=== PATIENT | female | born 1940 | race Caucasian/White ===

== ENCOUNTER 2017-11-09 12:22 | Outpatient (CLI) | payer MEDICARE, BC ==
[2017-11-09] MEDS ORDERED: Sodium Chloride 0.9% 50 ML BAG ONE (12:40)
[2017-11-09] MEDS ORDERED: Lidocaine 1% PF 10 ML AMP ONE (12:40)
[2017-11-09] MEDS ORDERED: EPINEPHrine 1 MG/ML AMP ONE (12:40)
[2017-11-09] MEDS ORDERED: Iopamidol 300 61% 50 ML VIAL FS ONE (12:40)
--- NOTE | 2017-11-09 15:03 | RAD ---
RIGHT SHOULDER ARTHROGRAM: HISTORY: Right shoulder injury. FINDINGS: After explaining the procedure and answering all questions, the anterior aspect of the right shoulder was prepped and draped in the usual sterile fashion. Sterile technique, buffered local anesthesia, fluorosocpic guidance, and an anterior approach were used to carefully advance the tip of a 22 gauge spinal needle so the joint capsule at the level of the humeral head. Total volume of 10 cc of a liqu id mixture containing normal saline, 1% Lidocaine, iodinated contrast, and a small amount of Gadolini um and epinephrine were then instilled into the joint capsule under fluoroscopic control. The needle was removed and spot images obtained. The patient tolerated the procedure well and was transferred to CT in good condition for further imaging. Images show contrast throughout the joint capsule. There is contrast immediately inferior to the acr omion, favored to extend through a defect in the rotator cuff. IMPRESSION: Technically successful right shoulder arthrogram. Probable full-thickness rotator cuff tear. CT is pending. POS: MARQUITA
--- NOTE | 2017-11-09 15:09 | CT ---
RIGHT SHOULDER CT SCAN POST ARTHROGRAM: HISTORY: A 77-year-old female with right shoulder pain, tear of right rotator cuff, unspecified tear extent. Scans of the right shoulder are performed following a right shoulder arthrogram. There is a large fu ll-thickness minimally retracted somewhat attenuating tear of the supraspinatus tendon approximating 1.9 cm in size transversely with retraction back to near the level of the humeral dome. There is flu id extension into the subacromial and subdeltoid bursa. There is at least moderate muscle volume los s of the supraspinatus muscle. There is a small undersurface and delaminating tear of the subscapula ris tendon. The biceps appears intact. The infraspinatus tendon appears intact. IMPRESSION: Large full-thickness minimally retracted somewhat attenuating tear of the supraspinatus tendon with a t least moderate muscle volume loss of the supraspinatus muscle. Small undersurface and delaminating subscapularis tendon tear. Slightly blunted posterior labrum but without evidence for definitive ac damaris labral tear. POS: C
== END 2017-11-09 12:23 | disposition home or self-care (01) ==
LOC: RAD 12:22
PROVIDERS: ATTEND Orthopaedic Surgery
DX: M75.101 Unspecified rotator cuff tear or rupture of right shoulder, not specified as traumatic (principal)
CPT/HCPCS: 23350; J0171; J7050

== ENCOUNTER 2018-08-31 11:34 | Emergency (ER) | payer MEDICARE, BC ==
[2018-08-31 13:20] LABS: #Basophils 0.1 thou/uL (0.0-0.2); #Eosinphils 0.2 thou/uL (0.0-0.7); #Lymphocytes 1.3 thou/uL (1.20-3.40); #Monocytes 0.5 thou/uL (0.11-0.59); %Basophils 1.6 % (0.0-1.0); %Eosinophils 3.3 % (0.0-10.0); %Lymphocytes 26.2 % (21.0-51.0); %Monocytes 9.8 % (0.0-10.0); %Neutrophils 59.1 % (42.0-75.0); Hemoglobin 14.1 g/dL (12.0-16.0); Mean Corpuscular HGB CONC 34.1 g/dL (32.0-36.0); Mean Corpuscular Volume 96.9 fL (78.0-98.0); Mean Platelet Volume 8.2 fL (7.4-10.4); Platelet Count 235 thou/uL (130-400); RBC Distribution Width 11.3 % (11.5-14.5); Red Blood Cell (RBC) Count 4.29 mill/uL (4.20-5.40); White Blood Cell (WBC) Count 5.1 thou/uL (4.8-10.8)
[2018-08-31 13:47] LABS: ALT (SGPT) 40 U/L (8-55); AST (SGOT) 33 U/L (5-34); Albumin 4.5 g/dL (3.4-4.8); Alkaline Phosphatase 69 U/L (40-150); Anion Gap 12 mmol/L (10-20); BUN (Urea Nitrogen) 14 mg/dL (9.8-20.1); Bilirubin, Total 0.4 mg/dL (0.2-1.2); Calc. Creatinine Clearance 0 mL/min (70-130); Calcium 10.1 mg/dL (7.8-10.44); Carbon Dioxide 30 mmol/L (23-31); Chloride 99 mmol/L (98-107); Estimated GFR-MDRD 84; Globulin 3.2 g/dL (2.4-3.5); Glucose 83 mg/dL (83-110); Potassium 3.8 mmol/L (3.5-5.1); Protein, Total 7.7 g/dL (6.0-8.3); Sodium 137 mmol/L (136-145)
--- NOTE | 2018-08-31 14:35 | ULT ---
LEFT LOWER EXTREMITY VENOUS DUPLEX EXAM: Date: 08/31/18 HISTORY: Left leg pain and swelling. FINDINGS: Real-time color Doppler of the left lower extremity was performed from groin to calf. This includes e valuation of the common femoral, superficial and profunda femoral, saphenous, popliteal, and posterio r tibial veins. This shows a patent deep venous system with normal compressibility and augmentation. There is no evidence of deep venous thrombosis. IMPRESSION: No evidence of deep venous thrombosis of the left lower extremity. POS: TPC
== END 2018-08-31 13:58 | disposition home or self-care (01) ==
LOC: ERS 11:34
DX: M79.89 Other specified soft tissue disorders (principal); E78.5 Hyperlipidemia, unspecified; I10 Essential (primary) hypertension; Z79.899 Other long term (current) drug therapy
CPT/HCPCS: 80053; 85025; 85379

== ENCOUNTER 2019-01-31 08:16 | Outpatient (CLI) | payer MEDICARE, BC ==
--- NOTE | 2019-01-31 09:03 | MMO ---
Bilateral MAMMO Bilat Screen [facility]. CLINICAL HISTORY: Patient is 79 years old and is seen for screening. The patient has the following family history of breast cancer: sister. The patient has no personal history of cancer. The patient has a history of right Excisional Biopsy in June, - benign. VIEWS: The views performed were: bilateral craniocaudal with tomosynthesis and bilateral mediolateral oblique with tomosynthesis. FILMS COMPARED: The present examination has been compared to prior imaging studies performed at [facility] on 09/23/2009, 10/22/2010, 11/21/2011 and 11/01/2012. MAMMOGRAM FINDINGS: There are scattered fibroglandular densities. Increasing bilateral vascular calcifications. There are no suspicious masses, suspicious calcifications, or new areas of architectural distortion. IMPRESSION: THERE IS NO MAMMOGRAPHIC EVIDENCE OF MALIGNANCY. A ROUTINE FOLLOW-UP MAMMOGRAM IN 1 YEAR IS RECOMMENDED. THE RESULTS OF THIS EXAM WERE SENT TO THE PATIENT. ACR BI-RADS Category 2 - Benign finding MAMMOGRAPHY NOTE: 1. A negative mammogram report should not delay a biopsy if a dominant of clinically suspicious mass is present. 2. Approximately 10% to 15% of breast cancers are not detected by mammography. 3. Adenosis and dense breasts may obscure an underlying neoplasm. Reported by: Zurdo LEVY Electonically Signed: [id number]
== END 2019-01-31 08:17 | disposition home or self-care (01) ==
LOC: BICMAMMO 08:16
PROVIDERS: ATTEND Family Medicine
DX: Z12.31 Encounter for screening mammogram for malignant neoplasm of breast (principal); Z80.3 Family history of malignant neoplasm of breast
CPT/HCPCS: 77063; 77067

== ENCOUNTER 2020-03-12 20:31 | Inpatient (IN) | payer MEDICARE, OTHER ==
[2020-03-12 21:25] LABS: #Basophils 0.1 thou/uL (0.0-0.2); #Eosinphils 0.2 thou/uL (0.0-0.7); #Lymphocytes 1.5 thou/uL (1.20-3.40); #Monocytes 0.6 thou/uL (0.11-0.59); #Neutrophils 4.7 thou/uL (1.40-6.50); %Basophils 1.1 % (0.0-1.0); %Eosinophils 2.1 % (0.0-10.0); %Lymphocytes 21.1 % (21.0-51.0); %Monocytes 8.7 % (0.0-10.0); Hemoglobin 13.8 g/dL (12.0-16.0); Mean Corpuscular HGB CONC 33.9 g/dL (32.0-36.0); Mean Corpuscular Hemoglobin 33.1 pg (27.0-31.0); Mean Corpuscular Volume 97.8 fL (78.0-98.0); Mean Platelet Volume 8.6 fL (7.4-10.4); Platelet Count 220 thou/uL (130-400); Red Blood Cell (RBC) Count 4.16 mill/uL (4.20-5.40); White Blood Cell (WBC) Count 7.1 thou/uL (4.8-10.8)
[2020-03-12 21:41] LABS: ALT (SGPT) 28 U/L (8-55); AST (SGOT) 20 U/L (5-34); Albumin 4.1 g/dL (3.4-4.8); Alkaline Phosphatase 65 U/L (40-110); Anion Gap 13 mmol/L (10-20); BUN (Urea Nitrogen) 19 mg/dL (9.8-20.1); Bilirubin, Total 0.2 mg/dL (0.2-1.2); CK (CPK) 66 U/L (29-168); Calc. Creatinine Clearance 0 mL/min (70-130); Calcium 9.4 mg/dL (7.8-10.44); Carbon Dioxide 25 mmol/L (23-31); Chloride 102 mmol/L (98-107); Estimated GFR-MDRD 58; Globulin 2.7 g/dL (2.4-3.5); Glucose 130 mg/dL (83-110); Lipase 34 U/L (8-78); Potassium 3.6 mmol/L (3.5-5.1); Protein, Total 6.8 g/dL (6.0-8.3); Sodium 136 mmol/L (136-145)
[2020-03-12 22:02] LABS: Bacteria/HPF 1+ HPF (None Seen); Bilirubin Negative (Negative); Blood, Urine Negative (Negative); Clarity Clear (Clear); Glucose, Urine (Dipstick) Normal (Negative); Ketone, Urine Negative (Negative); Leukocyte 500 Leu/uL (Negative); Nitrite Negative (Negative); Protein, Urine (Dipstick) Negative (Neg-Trace); RBC/HPF 0-3 HPF (0-3); Specific Gravity, Urine 1.013 (1.002-1.036); Urobilinogen Normal mg/dL (Less than 2)
[2020-03-12] MEDS ORDERED: Clopidogrel Bisulfate 75 MG TAB ONE (23:25)
[2020-03-13] MEDS ORDERED: Sulfameth/Trimethoprim DS 800-160mg TAB ONE (00:45)
[2020-03-13 01:17] LABS: CKMB 2.5 ng/mL (0-6.6)
[2020-03-13 01:21] VITALS: BMI 31.7
--- NOTE | 2020-03-13 02:30 | PDOC.HHP ---
Hospitalist HPI - History of Present Illness HTN, presyncope History of Present Illness: Patient is a 80 yaer old female with PMH HTN, HLD, GERD who presents to ED after presyncopal episode today, patient reports she was getting up to go to restroom and she very nearly passed out, did not fully lose consciousness but frightened her, episode was short in duration, she denies chest pain/shortness of breath/palpitations/confusion at that time, she did check her BP afterwards and it was very high, 200s/100s, she took one of her PRN clonidines. She has been stable on benazepril for some time, but reports about 6 weeks ago, BP became more labile and will go high occasionally. She told her PCP and was referred to cardiology Dr Banks, she wore a holter monitor for a week and was told she only had a very minor findings (sound like PVC/PAC from description ). She had an echo a few days ago and does not know results. Here in ED, BP elevated, troponin elevated, patient given plavix due to history of nose bleeds on aspirin. Labs concerning for elevated troponin 0.132, UA suggestive of UTI, cultures drawn, patient given bactrim and admitted for further workup. Hospitalist ROS - Review of Systems Constitutional: reports: weakness, other (presyncope). denies: fever, chills, sweats, malaise Eyes: denies: pain, vision change, conjunctivae inflammation, eyelid inflammation, redness, other ENT: denies: ear pain, ear discharge, nose pain, nose discharge, nose congestion , mouth pain, mouth swelling, throat pain, throat swelling, other Respiratory: denies: cough, dry, shortness of breath, hemoptysis, SOB with excertion, pleuritic pain, sputum, wheezing, other Cardiovascular: denies: chest pain, palpitations, orthopnea, paroxysmal noc. dyspnea, edema, light headedness, other Gastrointestinal: denies: nausea, vomiting, abdominal pain, diarrhea, constipation, melena, hematochezia, other Genitourinary: denies: dysuria, frequency, incontinence, hematuria, retention, other Musculoskeletal: denies: neck pain, shoulder pain, arm pain, back pain, hand pain, leg pain, foot pain, other Skin: denies: rash, lesions, prosper, bruising, other All other systems reviewed; all pertinent +/- noted in HPI/Subj - Medication Medications: benazepril PO Hospitalist History - Past Medical History Other Medical History: HTN, HLD, neuropathy - Past Surgical History Other Surgical History: BREAST CYST-BENIGN, Surgical history of tubal ligation. eye surgery-cataracts. x2 nasal surgeries. - Family History Family History: reports: no pertinent history - Social History Alcohol: reports: None Drugs: reports: none - Exam General Appearance: NAD, awake alert Eye: PERRL, anicteric sclera ENT: normocephalic atraumatic, no oropharyngeal lesions, moist mucosa Neck: supple, symmetric, no JVD, no thyromegaly, no lymphadenopathy, no carotid bruit Heart: RRR, no murmur, no gallops, no rubs, normal peripheral pulses Respiratory: CTAB, no wheezes, no rales, no ronchi, normal chest expansion, no tachypnea, normal percussion Gastrointestinal: soft, non-tender, non-distended, normal bowel sounds, no palpable masses, no hepatomegaly, no splenomegaly, no bruit Extremities: no cyanosis, no clubbing, no edema Skin: normal turgor, no lesions, no rashes Neurological: cranial nerve grossly intact, normal sensation to touch, no weakness, no focal deficits, no new deficit Musculoskeletal: normal tone, normal strength, no muscle wasting Psychiatric: normal affect, normal behavior, A&O x 3 Hospitalist Results - Labs Result Diagrams: 03/12/20 21:03 03/12/20 21:03 Lab results: WBC 7.1 thou/uL (4.8-10.8) 03/12/20 21:03 Hgb 13.8 g/dL (12.0-16.0) 03/12/20 21:03 Hct 40.7 % (36.0-47.0) 03/12/20 21:03 MCV 97.8 fL (78.0-98.0) 03/12/20 21:03 Plt Count 220 thou/uL (130-400) 03/12/20 21:03 Neutrophils % 67.0 % (42.0-75.0) 03/12/20 21:03 Sodium 136 mmol/L (136-145) 03/12/20 21:03 Potassium 3.6 mmol/L (3.5-5.1) 03/12/20 21:03 Chloride 102 mmol/L (98-107) 03/12/20 21:03 Carbon Dioxide 25 mmol/L (23-31) 03/12/20 21:03 BUN 19 mg/dL (9.8-20.1) 03/12/20 21:03 Creatinine 0.93 mg/dL (0.6-1.1) 03/12/20 21:03 Glucose 130 mg/dL (83-110) H 03/12/20 21:03 Calcium 9.4 mg/dL (7.8-10.44) 03/12/20 21:03 Total Bilirubin 0.2 mg/dL (0.2-1.2) 03/12/20 21:03 AST 20 U/L (5-34) 03/12/20 21:03 ALT 28 U/L (8-55) 03/12/20 21:03 Alkaline Phosphatase 65 U/L (40-110) 03/12/20 21:03 Creatine Kinase 66 U/L (29-168) 03/12/20 21:03 CK-MB (CK-2) 2.5 ng/mL (0-6.6) 03/13/20 00:28 Troponin I 0.132 ng/mL (< 0.028) H 03/13/20 00:28 Serum Total Protein 6.8 g/dL (6.0-8.3) 03/12/20 21:03 Albumin 4.1 g/dL (3.4-4.8) 03/12/20 21:03 Lipase 34 U/L (8-78) 03/12/20 21:03 Urine Ketones Negative mg/dL (Negative) 03/12/20 21:45 Urine Blood Negative (Negative) 03/12/20 21:45 Urine Nitrite Negative (Negative) 03/12/20 21:45 Ur Leukocyte Esterase 500 Cat/uL (Negative) A 03/12/20 21:45 Urine RBC 0-3 HPF (0-3) 03/12/20 21:45 Urine WBC 11-20 HPF (0-3) A 03/12/20 21:45 Ur Squamous Epith Cells 7-10 HPF (0-3) A 03/12/20 21:45 Urine Bacteria 1+ HPF (None Seen) A 03/12/20 21:45 Additional comment: VITAL SIGNS MonMar 13, 2020 00:01 KATHIE Becker, Estephanie BP: 113/65 Pulse: 70 Resp: 16 Temp: 98.0 (Oral) Pain: 0 O2 sat: 96 on (Room Air) Time: 03/13/2020 00:01. labs, imaging reports, ED documents, EKG reviewed by me - EKG Interpretation EKG: NSR, 93 bpm, nonspecific T wave changes Hospitalist H&P A/P - Plan Plan: Patient is a 80 year old female with PMH HTN, HLD, GERD who presents to ED after presyncopal episode today. # presyncopal episode # elevated troponin # HTN urgency # HLD Patient presents to ED for syncopal episode with elevated BP afterwards, patient on combination ARB and HCTZ. She has been stable on benazepril for some time, but reports about 6 weeks ago, BP became more labile and will go high occasionally. Patient reveals her PCP referred her to cardiology Dr Banks, she wore a holter monitor for a week and was told she only had a very minor findings (sound like PVC/PAC from description). She had an echo a few days ago and does not know results. Here in ED, BP elevated, troponin elevated, patient given plavix due to history of nose bleeds on aspirin. Labs concerning for elevated troponin 0.132, UA suggestive of UTI, cultures drawn, patient given bactrim and admitted for further workup. 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
[2020-03-13] MEDS ORDERED: Guaifenesin DM 100-10/5 ML UDCUP PO PRN (02:32)
[2020-03-13] MEDS ORDERED: Labetalol HCl 100 MG/20 ML VIAL SLOW IVP PRN (02:32)
[2020-03-13] MEDS ORDERED: Ondansetron PF 4 MG/2 ML Vial IVP PRN (02:32)
[2020-03-13] MEDS ORDERED: Promethazine HCl 12.5 MG in Sodium Chloride 0.9% 50 ML IVPB PRN (02:32)
[2020-03-13] MEDS ORDERED: cloNIDine 0.1 MG TAB PO PRN (02:32)
[2020-03-13] MEDS ORDERED: hydrALAZINE 20 MG/ML VIAL SLOW IVP PRN (02:32)
[2020-03-13] MEDS ORDERED: Lorazepam 2 MG/ML VIAL SLOW IVP PRN (02:34)
[2020-03-13] MEDS ORDERED: Nitroglycerin 0.4 MG TAB (25 Tab Bottle) SL PRN (02:39)
[2020-03-13] MEDS ORDERED: Electrolyte Replacement Protoc 1 EACH EACH FS PRN (02:45)
[2020-03-13] MEDS ORDERED: Aspirin Chewable 81 MG TAB PO SCH (03:00)
[2020-03-13] MEDS ORDERED: cefTRIAXone\\ROCEPHIN 1 GM in Sodium Chloride 0.9% 100 ML IVPB SCH (03:00)
[2020-03-13 03:23] LABS: Troponin I 0.186 ng/mL (< 0.028)
[2020-03-13 05:11] LABS: #Basophils 0.1 thou/uL (0.0-0.2); #Eosinphils 0.1 thou/uL (0.0-0.7); #Lymphocytes 1.4 thou/uL (1.20-3.40); #Monocytes 0.5 thou/uL (0.11-0.59); #Neutrophils 4.2 thou/uL (1.40-6.50); %Basophils 0.9 % (0.0-1.0); %Lymphocytes 22.6 % (21.0-51.0); %Monocytes 8.5 % (0.0-10.0); %Neutrophils 67.1 % (42.0-75.0); Hemoglobin 13.4 g/dL (12.0-16.0); Mean Corpuscular HGB CONC 33.7 g/dL (32.0-36.0); Mean Platelet Volume 8.9 fL (7.4-10.4); Platelet Count 207 thou/uL (130-400); Red Blood Cell (RBC) Count 4.04 mill/uL (4.20-5.40); White Blood Cell (WBC) Count 6.3 thou/uL (4.8-10.8)
[2020-03-13 05:41] LABS: Anion Gap 14 mmol/L (10-20); BUN (Urea Nitrogen) 15 mg/dL (9.8-20.1); Calc. Creatinine Clearance 81 mL/min (70-130); Calcium 9.6 mg/dL (7.8-10.44); Carbon Dioxide 26 mmol/L (23-31); Cardiac Risk 4.1 (Less than 4.5); Chloride 104 mmol/L (98-107); Cholesterol 207 mg/dl (< 200 Desired); Estimated GFR-MDRD 71; Glucose 117 mg/dL (83-110); HDL Cholesterol 50 mg/dL (>60 Neg Risk); LDL Cholesterol, Calculated 134 mg/dL; Magnesium 1.7 mg/dL (1.6-2.6); Potassium 3.5 mmol/L (3.5-5.1); Sodium 140 mmol/L (136-145); Triglycerides 115 mg/dL (Less than 150)
[2020-03-13] MEDS ORDERED: Potassium Chloride 20 MEQ TAB PO SCH (06:00)
[2020-03-13] MEDS ORDERED: Magnesium 2 GM/50 ML 2 GM in Premix Bag 1 BAG IVPB SCH (06:00)
--- NOTE | 2020-03-13 07:40 | RAD ---
CHEST 1 VIEW: INDICATION: Faint and feeling nauseated with history of headache and hypertension. Com Prior study dated 04/27/2017. FINDINGS: Again seen is a suspected large hiatal hernia. Lungs are clear. No definite pleural effusion or pne umothorax is evident. No acute osseous abnormality is evident. IMPRESSION: No definite acute cardiopulmonary abnormality. POS: BH
[2020-03-13] MEDS: Hydrochlorothiazide 25 MG TAB PO SCH (08:45)
[2020-03-13] MEDS: Aspirin Chewable 81 MG TAB PO SCH (08:45)
[2020-03-13] MEDS: Lisinopril 20 MG TAB PO SCH (08:45)
--- NOTE | 2020-03-13 08:51 | ULT ---
US Carotid Doppler STANDARD History: Presyncope Comparison: None. Findings: Real-time grayscale, color and spectral analysis of the extracranial carotid and vertebral arteries was performed. No elevated peak systolic velocities within the internal carotid arteries. Antegrade flow both verteb ral arteries. Impression: No hemodynamically significant stenosis. Minimal calcified plaque.
[2020-03-13] MEDS ORDERED: Hydrochlorothiazide 25 MG TAB PO SCH (09:00)
[2020-03-13] MEDS ORDERED: Famotidine 20 MG TAB PO SCH (09:00)
[2020-03-13] MEDS ORDERED: Lisinopril 20 MG TAB PO SCH (09:00)
[2020-03-13] MEDS ORDERED: Non-Formulary Item 1 EACH (Benazepril/Hydrochlorothiazide [Benazepril-Hctz 20-12.5 Mg Tab PO SCH (09:00)
[2020-03-13 12:45] LABS: SARS-CoV-2 MS2 Positive; SARS-CoV-2 N Gene Negative; SARS-CoV-2 S Gene Negative; SARS-CoV-2 by NAA Not Detected (NotDetected); SARS-CoV-2 orf1ab Negative
[2020-03-13] MEDS ORDERED: ADENOSINE 60 MG/20 ML VIAL ONE (14:12)
--- NOTE | 2020-03-13 14:55 | PDOC.HOSPP ---
- Subjective Encounter Date: 03/13/20 Subjective: Patient reports she is actually feeling well today. She has no specific complaints at the moment. 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 Ultimately what was found was apparently nothing more than PVCs. On this occasion the patient reported that she very nearly passed out. She said her vision went black. She did not fully lose consciousness. She says this is different from the other times when she has stood up too fast and felt a little lightheaded. She has had difficulty trying to do stress test in the past. It is a claustrophobia issue primarily. In the past they have tried to use benzodiazepines which unfortunately do not work for her and make her feel anxious. She also does not respond well to Benadryl for similar reasons. She is willing to try it again. She also reports some discomfort in her hands and feet. She says that the neuropathy that will occasionally flare and cause her some pain. She tries very hard to avoid taking any medications for any reason including this. - Objective Vital Signs & Weight: Vital Signs (12 hours) Temp Pulse Resp BP BP Pulse Ox 03/13/20 11:25 98.2 F 65 18 132/60 95 03/13/20 08:45 109/59 L 03/13/20 08:33 62 03/13/20 07:55 98 F 62 16 118/58 L 95 Weight Weight 193 lb 9.6 oz I&O: 03/12/20 03/13/20 03/14/20 06:59 06:59 06:59 Intake Total 196 Output Total 400 Balance -204 Result Diagrams: 03/13/20 04:37 03/13/20 04:37 Hospitalist ROS - Medication Medications: Active Medications Generic Name Dose Route Start Last Admin Trade Name Freq PRN Reason Stop Dose Admin Aspirin 81 mg 03/13/20 09:00 03/13/20 08:45 Aspirin Chewable PO Not Given DAILY JODIE Hydrochlorothiazide 25 mg 03/13/20 09:00 03/13/20 08:45 Hydrochlorothiazide PO Not Given DAILY JODIE Ceftriaxone Sodium 1 gm/ 100 mls @ 200 mls/hr 03/13/20 03:00 03/13/20 03:30 Sodium Chloride IVPB 100 mls 0300 JODIE Administration Lisinopril 40 mg 03/13/20 09:00 03/13/20 08:45 Zestril PO Not Given DAILY JODIE Pantoprazole Sodium 40 mg 03/13/20 09:00 03/13/20 08:39 Protonix PO 40 mg DAILY JODIE Administration - Exam General Appearance: NAD, awake alert General - other findings: Obese Heart: RRR, no murmur, no gallops, no rubs, normal peripheral pulses Respiratory: CTAB, no wheezes, no rales, no ronchi, normal chest expansion, no tachypnea, normal percussion Gastrointestinal: soft, non-tender, non-distended, normal bowel sounds, no palpable masses, no hepatomegaly, no splenomegaly, no bruit Extremities: no cyanosis, no clubbing, no edema Neurological: cranial nerve grossly intact, normal sensation to touch, no weakness, no focal deficits, no new deficit Musculoskeletal: normal tone, normal strength, no muscle wasting Psychiatric: normal affect, normal behavior, A&O x 3 Hosp A/P (1) Near syncope Status: Acute (2) Myocardial infarction Code(s): I21.9 - ACUTE MYOCARDIAL INFARCTION, UNSPECIFIED Status: Acute Qualifiers: Myocardial infarction type: type 2 Qualified Code(s): I21.A1 - Myocardial infarction type 2 (3) Hypertension Code(s): I10 - ESSENTIAL (PRIMARY) HYPERTENSION Status: Chronic (4) Hypotension Status: Acute - Plan Near syncope: I am concerned the patient may be suffering from some diastolic hypotension. Had a long discussion with her regarding her blood pressure medications. She has been on her current medicines for a number of years with no changes in the dosing. She has noted some episodes of hypotension and in fact has held her medicine for a day or 2 at times because of this. She has some documented low numbers here as well. In fact holding her medication today because her blood pressure was too low this morning. She does have some bump in her troponins which may be related to some hypotension as well. NSTEMI type II: Suspect this is due to a hypotensive episode. She also had significant hypertension on presentation that resolved very promptly. She is going to work very hard to try to accomplish the stress test today. Cardiology consult pending. Hypertension/hypotension: As above.
[2020-03-13] MEDS ORDERED: Atorvastatin Calcium 40 MG TAB PO SCH (21:00)
[2020-03-13] MEDS: Enoxaparin Sodium 40 MG/0.4 ML SYRINGE SC SCH (21:41)
[2020-03-13] MEDS: Acetaminophen 325 MG TAB PO PRN (21:42)
[2020-03-14 04:50] LABS: #Basophils 0.1 thou/uL (0.0-0.2); #Eosinphils 0.1 thou/uL (0.0-0.7); #Lymphocytes 1.4 thou/uL (1.20-3.40); #Monocytes 0.5 thou/uL (0.11-0.59); #Neutrophils 2.4 thou/uL (1.40-6.50); %Basophils 1.6 % (0.0-1.0); %Lymphocytes 30.4 % (21.0-51.0); %Monocytes 12.1 % (0.0-10.0); %Neutrophils 52.9 % (42.0-75.0); Hemoglobin 13.6 g/dL (12.0-16.0); Mean Corpuscular HGB CONC 33.5 g/dL (32.0-36.0); Mean Corpuscular Hemoglobin 32.5 pg (27.0-31.0); Mean Platelet Volume 9.3 fL (7.4-10.4); Platelet Count 200 thou/uL (130-400); Red Blood Cell (RBC) Count 4.19 mill/uL (4.20-5.40); White Blood Cell (WBC) Count 4.5 thou/uL (4.8-10.8)
[2020-03-14 05:10] LABS: Anion Gap 12 mmol/L (10-20); BUN (Urea Nitrogen) 15 mg/dL (9.8-20.1); Calc. Creatinine Clearance 74 mL/min (70-130); Calcium 9.2 mg/dL (7.8-10.44); Carbon Dioxide 26 mmol/L (23-31); Cardiac Risk 4.4 (Less than 4.5); Chloride 105 mmol/L (98-107); Cholesterol 212 mg/dl (< 200 Desired); Estimated GFR-MDRD 64; Glucose 100 mg/dL (83-110); HDL Cholesterol 48 mg/dL (>60 Neg Risk); LDL Cholesterol, Calculated 138 mg/dL; Magnesium 2.1 mg/dL (1.6-2.6); Potassium 4.1 mmol/L (3.5-5.1); Sodium 139 mmol/L (136-145); Triglycerides 130 mg/dL (Less than 150)
[2020-03-14] MEDS: Hydrochlorothiazide 25 MG TAB PO SCH (09:45)
[2020-03-14] MEDS: Lisinopril 20 MG TAB PO SCH (09:46)
[2020-03-14] MEDS: Aspirin Chewable 81 MG TAB PO SCH (10:40)
--- NOTE | 2020-03-14 11:52 | NM ---
Radionucleotide stress and rest myocardial perfusion scan with CT attenuation correction and SPECT im aging HISTORY: Chest pain. Syncope. FINDINGS: Heterogeneous uptake throughout the left ventricular myocardium. Adenosine protocol. No focal perfusion defect or reversibility apparent. QGS analysis of gated SPECT images shows no focal wall motion abnormalities. Ejection fraction calcul ated at 79%. IMPRESSION : No evidence of ischemia. Normal LVEF.
--- NOTE | 2020-03-14 14:19 | PDOC.HOSPP ---
- Subjective Encounter Date: 03/14/20 Subjective: Patient feels well this morning. She was able to manage to get through the stress test. Patient had a 2.9-second pause on telemetry. She was symptomatic with that feeling lightheaded and dizzy. - Objective Vital Signs & Weight: Vital Signs (12 hours) Temp Pulse Resp BP Pulse Ox 03/14/20 12:04 98.6 F 72 20 151/71 H 97 03/14/20 07:45 97.8 F 67 18 140/65 96 03/14/20 03:39 97.9 F 65 15 136/64 94 L Weight Weight 193 lb 3.2 oz I&O: 03/13/20 03/14/20 03/15/20 06:59 06:59 06:59 Intake Total 196 1190 Output Total 400 Balance -204 1190 Result Diagrams: 03/14/20 04:18 03/14/20 04:18 Hospitalist ROS - Medication Medications: Active Medications Generic Name Dose Route Start Last Admin Trade Name Freq PRN Reason Stop Dose Admin Acetaminophen 650 mg 03/13/20 02:32 03/13/20 21:42 Tylenol PO 650 mg Q4H PRN Administration Headache/Fever/Mild Pain (1-3) Aspirin 81 mg 03/13/20 09:00 03/14/20 10:40 Aspirin Chewable PO Not Given DAILY [facility] Enoxaparin Sodium 40 mg 03/13/20 21:00 03/13/20 21:41 Lovenox SC Not Given 2100 [facility] Hydrochlorothiazide 25 mg 03/13/20 09:00 03/14/20 09:45 Hydrochlorothiazide PO Not Given DAILY JODIE Lisinopril 40 mg 03/13/20 09:00 03/14/20 09:46 Zestril PO Not Given DAILY JODIE Pantoprazole Sodium 40 mg 03/13/20 09:00 03/14/20 10:40 Protonix PO 40 mg DAILY JODIE Administration - Exam General Appearance: NAD, awake alert Eye: PERRL, anicteric sclera Heart: RRR, no murmur, no gallops, no rubs, normal peripheral pulses Respiratory: CTAB, no wheezes, no rales, no ronchi, normal chest expansion, no tachypnea, normal percussion Gastrointestinal: soft, non-tender, non-distended, normal bowel sounds, no palpable masses, no hepatomegaly, no splenomegaly, no bruit Extremities: no cyanosis, no clubbing, no edema Skin: normal turgor, no lesions, no rashes Musculoskeletal: normal tone, normal strength, no muscle wasting Psychiatric: normal affect, normal behavior, A&O x 3 Hosp A/P (1) Near syncope Status: Acute (2) Myocardial infarction Code(s): I21.9 - ACUTE MYOCARDIAL INFARCTION, UNSPECIFIED Status: Acute Qualifiers: Myocardial infarction type: type 2 Qualified Code(s): I21.A1 - Myocardial infarction type 2 (3) Hypertension Code(s): I10 - ESSENTIAL (PRIMARY) HYPERTENSION Status: Chronic (4) Hypotension Status: Acute (5) Sinus pause Code(s): I45.5 - OTHER SPECIFIED HEART BLOCK Status: Acute - Plan Near syncope: Patient demonstrated a sinus pause this morning. She was symptomatic with that. Symptoms were similar to only not as severe as the symptoms she had when she presented. She reports that she has had these symptoms several times previously. This is most likely the source of her near syncope. I am also concerned the patient may be suffering from some diastolic hypotension. Holding her RAMOS inhibitor and HCTZ today. Systolics around 140 and diastolics are in the 60s. May need a beta-michelle post pacemaker placement. Sinus pause: Likely the source of the patient's presenting symptoms. Will require pacemaker. Discussed with cardiology. NSTEMI type II: Suspect this is due to a hypotensive episode or a pause event. She also had significant hypertension on presentation that resolved very promptly. Stress test is negative. Hypertension/hypotension: As above.
--- NOTE | 2020-03-14 17:05 | CON ---
DATE OF CONSULTATION: 03/14/2020 REASON FOR CONSULTATION: Dizziness, lightheadedness, near syncope. HISTORY OF PRESENT ILLNESS: Ms. Rogers is a very pleasant 80-year-old woman. The patient recently has been having increasing amounts of lightheadedness and dizziness. She has had a lot of lability in her blood pressure. However, she was also having these episodes, where they would come on suddenly, feel like she is going to faint and then would resolve quickly. The patient also was having episodes like she would completely faint. No chest pain or pressure. Cardiac enzymes were indeterminate. Her blood pressure is very labile as mentioned. MEDICATIONS: The patient was taking benazepril, hydrochlorothiazide, but had extremely labile blood pressure. REVIEW OF SYSTEMS: CONSTITUTIONAL: No significant weight gain or loss. VISION: No changes. HEARING: No changes. PULMONARY: No cough or wheezing. GASTROINTESTINAL: No nausea, vomiting, or diarrhea. SKIN: No rashes. NEUROLOGIC: No unilateral weakness or numbness. PSYCHIATRIC: No unusual depression or anxiety. PHYSICAL EXAMINATION: GENERAL: This is a pleasant 80-year-old woman, in no distress. VITAL SIGNS: Blood pressure 150/70 now, pulse 70. LUNGS: Clear. CARDIAC: Normal S1, normal S2. ABDOMEN: Soft, nontender. EXTREMITIES: Warm, dry. No clubbing. No cyanosis or edema. PERTINENT LABORATORY AND DIAGNOSTIC DATA: Her peak troponin was 0.19. However, stress testing was done, which showed no ischemia. The patient did have a 2.6-second pause early this morning. She said this is exactly what she has been feeling, except this was less severe than some of the ones she has been having. ASSESSMENT: 1. 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 2. Labile blood pressure. PLAN: 1. I recommend pacemaker insertion. Discussed risks of bleeding, infection, air around the lung, lead dislodgement. She understands and wishes to proceed. Will arrange for this on Monday. 2. Consideration for beta blockers. After the pacemaker is inserted, it may help control some of the very high elevations of blood pressure. Job ID: [id number]
[2020-03-14] MEDS: Acetaminophen 325 MG TAB PO PRN (20:40)
[2020-03-14] MEDS: Enoxaparin Sodium 40 MG/0.4 ML SYRINGE SC SCH (20:41)
[2020-03-15 05:18] LABS: Anion Gap 12 mmol/L (10-20); BUN (Urea Nitrogen) 14 mg/dL (9.8-20.1); Calc. Creatinine Clearance 78 mL/min (70-130); Calcium 9.1 mg/dL (7.8-10.44); Carbon Dioxide 23 mmol/L (23-31); Cardiac Risk 4.5 (Less than 4.5); Chloride 106 mmol/L (98-107); Cholesterol 218 mg/dl (< 200 Desired); Estimated GFR-MDRD 68; Glucose 133 mg/dL (83-110); HDL Cholesterol 48 mg/dL (>60 Neg Risk); LDL Cholesterol, Calculated 144 mg/dL; Magnesium 1.9 mg/dL (1.6-2.6); Potassium 3.9 mmol/L (3.5-5.1); Sodium 137 mmol/L (136-145); Triglycerides 130 mg/dL (Less than 150)
[2020-03-15] MEDS ORDERED: Magnesium 2 GM/50 ML 2 GM in Premix Bag 1 BAG IVPB SCH (05:45)
[2020-03-15] MEDS ORDERED: Polyethylene Glycol 3350 17 GM Packet PO PRN (08:16)
[2020-03-15] MEDS: Hydrochlorothiazide 25 MG TAB PO SCH (08:22)
[2020-03-15] MEDS: Lisinopril 20 MG TAB PO SCH (08:23)
[2020-03-15] MEDS: Aspirin Chewable 81 MG TAB PO SCH (08:23)
[2020-03-15] MEDS: Senokot 8.6 MG TAB PO PRN (10:56)
--- NOTE | 2020-03-15 16:40 | PDOC.HOSPP ---
- Subjective Encounter Date: 03/15/20 Subjective: Feels very well. She has no specific complaints other than feeling constipated. - Objective Vital Signs & Weight: Vital Signs (12 hours) Temp Pulse Resp BP BP Pulse Ox 03/15/20 15:30 98.3 F 73 17 161/64 H 96 03/15/20 11:02 97.6 F 69 17 146/69 H 95 03/15/20 07:26 97.6 F 76 16 142/65 H 95 Weight Weight 193 lb 3.2 oz I&O: 03/14/20 03/15/20 03/16/20 06:59 06:59 06:59 Intake Total 1190 1050 Output Total 2 Balance 1190 1048 Result Diagrams: 03/14/20 04:18 03/15/20 04:28 Hospitalist ROS - Medication Medications: Active Medications Generic Name Dose Route Start Last Admin Trade Name Freq PRN Reason Stop Dose Admin Acetaminophen 650 mg 03/13/20 02:32 03/14/20 20:40 Tylenol PO 650 mg Q4H PRN Administration Headache/Fever/Mild Pain (1-3) Aspirin 81 mg 03/13/20 09:00 03/15/20 08:23 Aspirin Chewable PO Not Given DAILY JODIE Enoxaparin Sodium 40 mg 03/13/20 21:00 03/14/20 20:41 Lovenox SC Not Given 2100 JODIE Hydrochlorothiazide 25 mg 03/13/20 09:00 03/15/20 08:22 Hydrochlorothiazide PO Not Given DAILY JODIE Lisinopril 40 mg 03/13/20 09:00 03/15/20 08:23 Zestril PO Not Given DAILY JODIE Pantoprazole Sodium 40 mg 03/13/20 09:00 03/15/20 08:23 Protonix PO 40 mg DAILY JODIE Administration Senna 2 tab 03/15/20 08:16 03/15/20 10:56 Senokot PO 2 tab HSPRN PRN Administration Constipation Sodium Chloride 10 ml 03/14/20 21:00 03/15/20 08:23 Flush - Normal Saline IVF 10 ml Q12HR JODIE Administration - Exam General Appearance: NAD, awake alert Heart: RRR, no murmur, no gallops, no rubs, normal peripheral pulses Respiratory: CTAB, no wheezes, no rales, no ronchi, normal chest expansion, no tachypnea, normal percussion Gastrointestinal: soft, non-tender, non-distended, normal bowel sounds, no palpable masses, no hepatomegaly, no splenomegaly, no bruit Extremities: no cyanosis, no clubbing, no edema Skin: normal turgor, no lesions, no rashes Neurological: cranial nerve grossly intact, normal sensation to touch, no weakness, no focal deficits, no new deficit Musculoskeletal: normal tone, normal strength, no muscle wasting Psychiatric: normal affect, normal behavior, A&O x 3 Hosp A/P (1) Near syncope Status: Acute (2) Myocardial infarction Code(s): I21.9 - ACUTE MYOCARDIAL INFARCTION, UNSPECIFIED Status: Acute Qualifiers: Myocardial infarction type: type 2 Qualified Code(s): I21.A1 - Myocardial infarction type 2 (3) Hypertension Code(s): I10 - ESSENTIAL (PRIMARY) HYPERTENSION Status: Chronic (4) Hypotension Status: Acute (5) Sinus pause Code(s): I45.5 - OTHER SPECIFIED HEART BLOCK Status: Acute - Plan Near syncope: Likely related to a sinus pause. She will get a pacemaker tomorrow. Could be some hypotension. Her blood pressure medications have been held. Blood pressure has been fairly normal since holding her medicines. Sinus pause: Likely the source of the patient's presenting symptoms. Will require pacemaker. Discussed with cardiology. NSTEMI type II: Suspect this is due to a hypotensive episode or a pause event. She also had significant hypertension on presentation that resolved very promptly. Stress test is negative. Hypertension/hypotension: As above. Constipation: Multiple PRN's ordered. Disposition: Patient will likely be able to discharge following placement of the pacemaker.
[2020-03-15] MEDS: Acetaminophen 325 MG TAB PO PRN (20:41)
[2020-03-16] MEDS: Aspirin Chewable 81 MG TAB PO SCH (07:31)
[2020-03-16] MEDS ORDERED: CEFAZOLIN 2 GM in Premix Bag 1 BAG IVPB SCH (08:00)
[2020-03-16] MEDS ORDERED: CEFAZOLIN 1 GM VIAL ONE (10:57)
[2020-03-16] MEDS ORDERED: Gentamicin 80 MG/2 ML VIAL ONE (10:57)
[2020-03-16] MEDS ORDERED: Lidocaine 1% (PF) 30 ML VIAL ONE ×2 (11:08→11:58)
[2020-03-16] MEDS ORDERED: Lisinopril 10 MG TAB PO SCH (11:15)
[2020-03-16] MEDS ORDERED: Ondansetron PF 4 MG/2 ML Vial ONE (11:27)
[2020-03-16] MEDS ORDERED: Midazolam HCl 2 mg/2 ml Vial ONE ×2 (11:36→11:58)
[2020-03-16] MEDS ORDERED: Iopamidol 370 76% 50 ML VIAL FS ONE (12:09)
[2020-03-16] MEDS: HYDROcodone/Acetaminophen 5/325 mg Tablet PO PRN ×3 (13:24→21:14)
[2020-03-16] MEDS: Senokot 8.6 MG TAB PO PRN (13:24)
--- NOTE | 2020-03-16 13:55 | RAD ---
EXAM: CHEST ONE VIEW HISTORY: Post cardiac device placement COMPARISON: 03/13/2020 FINDINGS: There has been interval placement of a dual-lead left including cardiac pacemaking device. Cardiac si lhouette is within normal limits for portable technique of the study. Pulmonary vasculature is within normal limits. The lungs are clear. No pneumothorax or pleural effusion is identified. Hiatal hernia retrocardiac region medial left lung base is again seen IMPRESSION: Interval placement of a dual-lead left subclavian cardiac pacemaking device without evidence of a pne umothorax.
--- NOTE | 2020-03-16 14:20 | PDOC.HOSPP ---
- Subjective Encounter Date: 03/16/20 Subjective: Doing well today except that she had a little bit of a headache. Her blood pressure started going up again last night. - Objective Vital Signs & Weight: Vital Signs (12 hours) Temp Pulse Resp BP BP Pulse Ox 03/16/20 11:06 98.0 F 77 17 171/71 H 97 03/16/20 10:20 68 181/71 H 03/16/20 08:12 64 138/64 03/16/20 07:29 97.7 F 65 16 159/70 H 97 03/16/20 04:00 98.2 F 68 68 H 142/65 H 93 L Weight Weight 191 lb I&O: 03/15/20 03/16/20 03/17/20 06:59 06:59 06:59 Intake Total 1050 1780 Output Total 2 Balance 1048 1780 Result Diagrams: 03/14/20 04:18 03/15/20 04:28 Additional Labs: Accuchecks 03/16/20 03/16/20 11:18 06:03 POC Glucose 87 103 Hospitalist ROS - Medication Medications: Active Medications Generic Name Dose Route Start Last Admin Trade Name Freq PRN Reason Stop Dose Admin Acetaminophen 650 mg 03/13/20 02:32 03/15/20 20:41 Tylenol PO 650 mg Q4H PRN Administration Headache/Fever/Mild Pain (1-3) Hydrocodone Bitart/Acetaminophen 1 tab 03/13/20 02:32 03/16/20 13:24 [place] 5/325 PO 1 tab Q4H PRN Administration Moderate Pain (4-6) Aspirin 81 mg 03/13/20 09:00 03/16/20 07:31 Aspirin Chewable PO Not Given DAILY JODIE Clonidine 0.1 mg 03/13/20 02:32 03/15/20 20:40 Catapres PO 0.1 mg BID PRN Administration SBP > 160 use second Hydralazine HCl 10 mg 03/13/20 02:32 03/16/20 10:20 Apresoline SLOW IVP 10 mg Q6H PRN Administration SBP GREATER THAN 160 Pantoprazole Sodium 40 mg 03/13/20 09:00 03/16/20 08:11 Protonix PO 40 mg DAILY JODIE Administration Polyethylene Glycol 17 gm 03/15/20 08:16 03/16/20 13:25 Miralax PO 17 gm DAILYPRN PRN Administration Constipation Senna 2 tab 03/15/20 08:16 03/16/20 13:24 Senokot PO 2 tab HSPRN PRN Administration Constipation Sodium Chloride 10 ml 03/14/20 21:00 03/16/20 08:12 Flush - Normal Saline IVF 10 ml Q12HR JODIE Administration - Exam General Appearance: NAD, awake alert Heart: RRR, no murmur, no gallops, no rubs, normal peripheral pulses Respiratory: CTAB, no wheezes, no rales, no ronchi, normal chest expansion, no tachypnea, normal percussion Gastrointestinal: soft, non-tender, non-distended, normal bowel sounds, no palpable masses, no hepatomegaly, no splenomegaly, no bruit Extremities: no cyanosis, no clubbing, no edema Skin: normal turgor, no lesions, no rashes Neurological: cranial nerve grossly intact, normal sensation to touch, no weakness, no focal deficits, no new deficit Musculoskeletal: normal tone, normal strength, no muscle wasting Psychiatric: normal affect, normal behavior, A&O x 3 Hosp A/P (1) Near syncope Status: Acute (2) Myocardial infarction Code(s): I21.9 - ACUTE MYOCARDIAL INFARCTION, UNSPECIFIED Status: Acute Qualifiers: Myocardial infarction type: type 2 Qualified Code(s): I21.A1 - Myocardial infarction type 2 (3) Hypertension Code(s): I10 - ESSENTIAL (PRIMARY) HYPERTENSION Status: Chronic (4) Hypotension Status: Acute (5) Sinus pause Code(s): I45.5 - OTHER SPECIFIED HEART BLOCK Status: Acute - Plan Near syncope: Likely related to a sinus pause. She will get a pacemaker tomorrow. Could be some hypotension. Her blood pressure medications have been held until today when she required a small dose. Sinus pause: Likely the source of the patient's presenting symptoms. Pacemaker placement today. NSTEMI type II: Suspect this is due to a hypotensive episode or a pause event. She also had significant hypertension on presentation that resolved very promptly. Stress test is negative. Hypertension/hypotension: She has been off the RAMOS inhibitor since presentation because of some relative hypotension. Today her blood pressures running high again. Unclear if this is partially related to anxiety about the procedure itself. We will give low-dose RAMOS inhibitor after the IV hydralazine failed to bring the blood pressure down adequately. Post procedure may focus more on the utilization of beta blockers. Constipation: Multiple PRN's ordered. Disposition: Patient will likely be able to discharge following placement of the pacemaker either later today or tomorrow morning.
[2020-03-17] MEDS: HYDROcodone/Acetaminophen 5/325 mg Tablet PO PRN ×2 (02:35→08:05)
[2020-03-17] MEDS: Aspirin Chewable 81 MG TAB PO SCH (08:04)
[2020-03-17 11:17] VITALS: BP 130/65; TEMP 98.3
--- NOTE | 2020-03-18 00:32 | DIS ---
DATE OF ADMISSION: 03/13/2020 DATE OF DISCHARGE: 03/17/2020 DISCHARGE DIAGNOSES: 1. Syncope. 2. Sinus pause. 3. Nwl-HD-cuysmctzt myocardial infarction type 2. 4. Hypertension. 5. Hypotension. 6. Constipation. HISTORY: This patient is a 80-year-old female who presented to the hospital with syncopal event. She had a workup, which revealed largely unremarkable labs. COVID test was negative. The patient was placed in observation. She had some relatively low blood pressures, especially diastolic. Therefore, her blood pressure medications were held. She did well with that with regard to her blood pressure. However, she did have an episode of sinus pause, in which she was symptomatic with being dizzy, lightheaded, and having slight drop in her blood pressure. It was felt that this was likely the source of her syncopal event. She also had a very minimal bump up in her troponins, which were in the indeterminate range. She was seen in consultation by Cardiology and had a pacemaker recommended. She underwent successful implantation of the pacemaker and felt well after the procedure. She did have some elevation in her blood pressure on the day of the procedure, but it was felt that was more anxiety related and post procedure. She had some persistent mild diastolic hypotension. Also of note, the patient had some mild constipation issues while in the hospital which were addressed. PHYSICAL EXAMINATION: VITAL SIGNS: On the day of discharge, temperature is 98.2, pulse 68, respirations 19, O2 saturation 98% on room air, BP 130/65. GENERAL APPEARANCE: Age-appropriate female in no distress. She was awake and alert. HEART: Regular. LUNGS: Clear. ABDOMEN: Benign. Pacemaker site looked healthy. DISPOSITION: The patient is discharged to home on a regular heart-healthy diet. ACTIVITY: As tolerated. She has no activity restrictions. DISCHARGE MEDICATIONS: She will be on: 1. Keflex 500 mg b.i.d. 2. Omeprazole 20 mg daily. 3. We will give her a prescription for lisinopril 5 mg p.o. daily only to use if her blood pressure is consistently greater than 140 systolic or 85 diastolic. FOLLOWUP: She is to follow up with Dr. Espino in 2 to 3 weeks. PERTINENT STUDIES: Include nuclear medicine stress test, which showed no evidence of ischemia and a normal ejection fraction at 79%. Carotid Doppler studies showed no hemodynamically significant stenosis. Echocardiogram showed normal ejection fraction at 60% to 65%. No other significant abnormalities. The patient may return to hospital anytime she has the need to do so. Otherwise, should follow up with Dr. Espino in 2 weeks and she can return to the hospital anytime she has the need to do so. Total time spent in discharge activities was greater than 30 minutes. Job ID: [id number]
--- NOTE | 2020-03-18 10:22 | EKG ---
Test Reason : Blood Pressure : / mmHG Vent. Rate : 091 BPM Atrial Rate : 091 BPM P-R Int : 176 ms QRS Dur : 080 ms QT Int : 352 ms P-R-T Axes : 044 024 104 degrees QTc Int : 432 ms Normal sinus rhythm Nonspecific ST and T wave abnormality Abnormal ECG When compared with ECG of 12-MAR-2020 20:39, (Unconfirmed) Nonspecific T wave abnormality, improved in Inferior leads Confirmed by LYSSA PABLO M.D. ([id number]) on 03/18/2020 10:21:31 AM Referred By: MICHELLE Confirmed By:LYSSA PABLO M.D.
--- NOTE | 2020-03-19 10:57 | CCLSPC ---
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 She was taken to cardiac dairy laboratory technician where she underwent the procedure today without any difficulties or complications except for some difficulty obtaining access to the left subclavian vein and using a venogram and the left forearm IV. We were able to visualize the vein and then further difficulties were not encountered. The pacemaker was implanted. It was a dual chamber pacemaker from [employer], an Krystal S dual-chamber pacemaker which is MRI compatible. There was a tined lead placed in the right atrium and screw-in fixed lead in the right ventricle. Pacemaker was set with the upper rate of 120, the lower rate was set at 60. The full dictated note can be found in the chart. Job ID: [id number]
== END 2020-03-17 11:13 | disposition home or self-care (01) | DRG 242 ==
LOC: ERS 20:31 → 2SW 23:54 → OBSVTOIN 03-13 18:12 → 2NO 03-13 21:03
PROVIDERS: ADMIT Internal Medicine; ATTEND Internal Medicine
PROC: 0JH606Z Insertion of Pacemaker, Dual Chamber into Chest Subcutaneous Tissue and Fascia, Open Approach (ICD-10-PCS; principal; 2020-03-16)
PROC: 02HK3JZ Insertion of Pacemaker Lead into Right Ventricle, Percutaneous Approach (ICD-10-PCS; 2020-03-16)
PROC: 02H63JZ Insertion of Pacemaker Lead into Right Atrium, Percutaneous Approach (ICD-10-PCS; 2020-03-16)
DX: I45.5 Other specified heart block (principal); I21.A1 Myocardial infarction type 2; N39.0 Urinary tract infection, site not specified; Z20.828 Contact with and (suspected) exposure to other viral communicable diseases; I10 Essential (primary) hypertension; E78.5 Hyperlipidemia, unspecified; K21.9 Gastro-esophageal reflux disease without esophagitis; G62.9 Polyneuropathy, unspecified; I16.0 Hypertensive urgency; F40.240 Claustrophobia; F41.9 Anxiety disorder, unspecified; K59.00 Constipation, unspecified; Z88.8 Allergy status to other drugs, medicaments and biological substances; Z88.5 Allergy status to narcotic agent; Z88.7 Allergy status to serum and vaccine
CPT/HCPCS: 36415; 36416; 71045; 75820; 78452; 80048; 80053; 80061; 81003; 81015; 82550; 82553; 83690; 83735; 84484; 85025; 87086; 87635; 93005; 93010; 93017; 93306; 93880; 97139; 99152; 99153; A9500; C1785; C1898; J0153; J0360; J0690; J0696; J1580; J2001; J2250; J2405; J3475; J3490; Q9967; U0003

== ENCOUNTER 2020-03-18 19:01 | Emergency (ER) | payer MEDICARE ==
--- NOTE | 2020-03-18 19:44 | RAD ---
Portable frontal chest radiograph: 03/18/2020 COMPARISON: 03/16/2020 HISTORY: Chest pain FINDINGS: There is a dual lead transvenous pacing device in stable position. Rounded density overlyin g the left base medially suggest a hiatal hernia. No pneumothorax or pleural fluid. No focal consolidation or alveolar edema. IMPRESSION: No acute findings-stable appearance of the chest.
[2020-03-18 19:47] LABS: #Basophils 0.1 thou/uL (0.0-0.2); #Eosinphils 0.1 thou/uL (0.0-0.7); #Lymphocytes 1.8 thou/uL (1.20-3.40); #Monocytes 0.7 thou/uL (0.11-0.59); #Neutrophils 3.8 thou/uL (1.40-6.50); %Basophils 1.2 % (0.0-1.0); %Eosinophils 1.5 % (0.0-10.0); %Lymphocytes 27.4 % (21.0-51.0); %Monocytes 11.4 % (0.0-10.0); %Neutrophils 58.6 % (42.0-75.0); Hemoglobin 13.3 g/dL (12.0-16.0); Mean Corpuscular HGB CONC 34.8 g/dL (32.0-36.0); Mean Corpuscular Hemoglobin 33.8 pg (27.0-31.0); Mean Corpuscular Volume 97.3 fL (78.0-98.0); Mean Platelet Volume 8.4 fL (7.4-10.4); Platelet Count 216 thou/uL (130-400); RBC Distribution Width 10.9 % (11.5-14.5); Red Blood Cell (RBC) Count 3.95 mill/uL (4.20-5.40); White Blood Cell (WBC) Count 6.4 thou/uL (4.8-10.8)
[2020-03-18 19:59] LABS: ALT (SGPT) 29 U/L (8-55); AST (SGOT) 26 U/L (5-34); Albumin 4.2 g/dL (3.4-4.8); Alkaline Phosphatase 54 U/L (40-110); Anion Gap 13 mmol/L (10-20); BUN (Urea Nitrogen) 14 mg/dL (9.8-20.1); Bilirubin, Total 0.5 mg/dL (0.2-1.2); Calc. Creatinine Clearance 0 mL/min (70-130); Calcium 9.2 mg/dL (7.8-10.44); Carbon Dioxide 24 mmol/L (23-31); Chloride 104 mmol/L (98-107); Estimated GFR-MDRD 69; Globulin 3.2 g/dL (2.4-3.5); Glucose 100 mg/dL (83-110); Potassium 3.8 mmol/L (3.5-5.1); Protein, Total 7.4 g/dL (6.0-8.3); Sodium 137 mmol/L (136-145)
[2020-03-18 21:47] LABS: Troponin I Less than 0.010 ng/mL (< 0.028)
--- NOTE | 2020-03-21 13:15 | EKG ---
Test Reason : Blood Pressure : / mmHG Vent. Rate : 085 BPM Atrial Rate : 085 BPM P-R Int : 172 ms QRS Dur : 082 ms QT Int : 366 ms P-R-T Axes : 015 006 002 degrees QTc Int : 435 ms Normal sinus rhythm Possible Inferior infarct , age undetermined Cannot rule out Anterior infarct , age undetermined Abnormal ECG Confirmed by CAMDEN CANTRELL M.D. ([id number]), video editor MILI LEVINE ([id number]) on 03/21/2020 1:15:06 PM Referred By: Confirmed By:CAMDEN CANTRELL M.D.
== END 2020-03-18 22:25 ==
LOC: ERS 19:01
DX: R07.9 Chest pain, unspecified (principal); E78.5 Hyperlipidemia, unspecified; I10 Essential (primary) hypertension; Z79.899 Other long term (current) drug therapy
CPT/HCPCS: 36415; 71045; 80053; 84484; 85025; 93005

== ENCOUNTER 2020-03-30 08:24 | Emergency (ER) | payer MEDICARE ==
--- NOTE | 2020-03-30 08:51 | RAD ---
Chest one view HISTORY: Chest pain. COMPARISON: 03/18/2020. FINDINGS: Cardiac silhouette is magnified by projection. Pulmonary vasculature is unremarkable. Mediastinum is midline with a dual lead left subclavian cardiac electronic device. Opacity projecting immediately lateral to the left cardiac margin has the appearance of parenchymal p rocess at the left posterior medial lung base. Right lung is clear. No evidence of pneumothorax. IMPRESSION : Left basilar parenchymal atelectasis/infiltrate. Clinical correlation regarding other signs and sympt oms of left lower lobe pneumonitis is required. Please consider upright PA and lateral views of the chest in full inspiration when patient can undergo that exam.
[2020-03-30 08:52] LABS: #Basophils 0.1 thou/uL (0.0-0.2); #Eosinphils 0.1 thou/uL (0.0-0.7); #Monocytes 0.5 thou/uL (0.11-0.59); #Neutrophils 3.7 thou/uL (1.40-6.50); %Basophils 0.9 % (0.0-1.0); %Eosinophils 1.4 % (0.0-10.0); %Lymphocytes 19.2 % (21.0-51.0); %Monocytes 8.9 % (0.0-10.0); %Neutrophils 69.6 % (42.0-75.0); Hemoglobin 13.6 g/dL (12.0-16.0); Mean Corpuscular HGB CONC 33.5 g/dL (32.0-36.0); Mean Corpuscular Hemoglobin 32.5 pg (27.0-31.0); Mean Corpuscular Volume 97.2 fL (78.0-98.0); Platelet Count 195 thou/uL (130-400); RBC Distribution Width 11.1 % (11.5-14.5); Red Blood Cell (RBC) Count 4.18 mill/uL (4.20-5.40); White Blood Cell (WBC) Count 5.3 thou/uL (4.8-10.8)
[2020-03-30 09:18] LABS: ALT (SGPT) 25 U/L (8-55); AST (SGOT) 20 U/L (5-34); Albumin 4.3 g/dL (3.4-4.8); Alkaline Phosphatase 52 U/L (40-110); Anion Gap 13 mmol/L (10-20); BUN (Urea Nitrogen) 15 mg/dL (9.8-20.1); Bilirubin, Total 0.5 mg/dL (0.2-1.2); Calc. Creatinine Clearance 0 mL/min (70-130); Calcium 9.3 mg/dL (7.8-10.44); Carbon Dioxide 24 mmol/L (23-31); Chloride 107 mmol/L (98-107); Estimated GFR-MDRD 70; Globulin 2.7 g/dL (2.4-3.5); Glucose 105 mg/dL (83-110); Lipase 29 U/L (8-78); Potassium 3.9 mmol/L (3.5-5.1); Sodium 140 mmol/L (136-145)
== END 2020-03-30 12:10 | disposition home or self-care (01) ==
LOC: ERS 08:24
DX: I10 Essential (primary) hypertension (principal); E78.5 Hyperlipidemia, unspecified; Z79.899 Other long term (current) drug therapy
CPT/HCPCS: 36415; 71045; 80053; 83690; 84484; 85025; 93005; 94760

== ENCOUNTER 2022-10-26 09:36 | Outpatient (CLI) | payer MEDICARE | END 2022-10-26 09:37 | disposition home or self-care (01) | LOC: BICRAD 09:36 | PROVIDERS: ATTEND Internal Medicine Hematology & Oncology | DX: C90.00 Multiple myeloma not having achieved remission (principal) | CPT/HCPCS: 77075 ==

== ENCOUNTER 2023-08-25 08:08 | Observation (INO) | payer MEDICARE ==
[2023-08-25 08:50] LABS: #Basophils 0.1 thou/uL (0.0-0.2); #Monocytes 0.6 thou/uL (0.11-0.59); #Neutrophils 4.5 thou/uL (1.40-6.50); %Basophils 0.9 % (0.0-1.0); %Eosinophils 0.6 % (0.0-10.0); %Monocytes 8.7 % (0.0-10.0); %Neutrophils 71.6 % (42.0-75.0); Hematocrit 42.4 % (36.0-47.0); Hemoglobin 14.5 g/dL (12.0-16.0); Mean Corpuscular HGB CONC 34.2 g/dL (32.0-36.0); Mean Corpuscular Hemoglobin 31.5 pg (27.0-31.0); Mean Corpuscular Volume 92.2 fl (78.0-98.0); Mean Platelet Volume 10.7 fL (7.4-10.4); Platelet Count 234 10x3/uL (130-400); RBC Distribution Width 12.9 % (11.5-14.5); White Blood Cell (WBC) Count 6.3 10x3/uL (4.8-10.8)
[2023-08-25 09:14] LABS: ALT (SGPT) 14 U/L (8-55); AST (SGOT) 17 U/L (5-34); Albumin 4.2 g/dL (3.4-4.8); Alkaline Phosphatase 56 U/L (40-110); Anion Gap 12 mmol/L (10-20); BUN (Urea Nitrogen) 8 mg/dL (9.8-20.1); Bilirubin, Total 0.6 mg/dL (0.2-1.2); Calc. Creatinine Clearance 0 mL/min (70-130); Calcium 9.7 mg/dL (7.8-10.44); Carbon Dioxide 25 mmol/L (23-31); Chloride 105 mmol/L (98-107); Estimated GFR 64; Globulin 3.2 g/dL (2.4-3.5); Glucose 101 mg/dL (83-110); Potassium 3.8 mmol/L (3.5-5.1); Protein, Total 7.4 g/dL (5.8-8.1); Sodium 138 mmol/L (136-145)
[2023-08-25 09:15] LABS: Bacteria/HPF None Seen HPF (None Seen); Bilirubin Negative (Negative); Blood, Urine Negative (Negative); CAUTI Indications for Culture Dysuria,urgency,freq; Clarity Clear (Clear); Glucose, Urine (Dipstick) Normal (Negative); Ketone, Urine Negative (Negative); Leukocyte 75 Leu/uL (Negative); Nitrite Negative (Negative); Protein, Urine (Dipstick) Negative (Neg-Trace); RBC/HPF 0-3 HPF (0-3); Specific Gravity, Urine 1.005 (1.002-1.036); Squamous Epithelial 0-3 HPF (0-3); Urobilinogen Normal mg/dL (Less than 2); WBC/HPF 0-3 HPF (0-3)
[2023-08-25 09:17] LABS: Urine Culture Reflex No No
[2023-08-25 09:18] LABS: Troponin I Less than 0.010 ng/mL (< 0.028)
[2023-08-25] MEDS ORDERED: Meclizine HCl 25 MG TAB ONE (09:45)
[2023-08-25] MEDS ORDERED: Acetaminophen 325 MG TAB PO PRN (12:42)
[2023-08-25] MEDS ORDERED: Lisinopril 5 MG TAB PO PRN (12:43)
[2023-08-25] MEDS ORDERED: traMADol HCl 50 MG TAB PO PRN (12:48)
[2023-08-25] MEDS ORDERED: Aspirin Chewable 81 MG TAB ONE (13:50)
[2023-08-25] MEDS: Aspirin 81 mg Enteric Coated Tablet PO SCH (13:55)
[2023-08-25] MEDS: Meclizine HCl 25 MG TAB PO PRN (18:11)
[2023-08-25 18:35] VITALS: BMI 28.9
[2023-08-25] MEDS: Melatonin 3 MG TAB PO PRN (21:29)
[2023-08-25] MEDS: Famotidine/PF 20 mg/2ml Vial SLOW IVP SCH (21:29)
[2023-08-25] MEDS: Atorvastatin Calcium 40 MG TAB PO SCH (21:29)
[2023-08-26 04:04] LABS: #Basophils 0.1 thou/uL (0.0-0.2); #Eosinphils 0.1 thou/uL (0.0-0.7); #Monocytes 0.7 thou/uL (0.11-0.59); %Basophils 1.7 % (0.0-1.0); %Eosinophils 1.5 % (0.0-10.0); %Lymphocytes 28.5 % (21.0-51.0); %Monocytes 12.1 % (0.0-10.0); Hematocrit 39.6 % (36.0-47.0); Hemoglobin 13.3 g/dL (12.0-16.0); Mean Corpuscular HGB CONC 33.6 g/dL (32.0-36.0); Mean Corpuscular Hemoglobin 31.7 pg (27.0-31.0); Mean Corpuscular Volume 94.5 fl (78.0-98.0); Mean Platelet Volume 10.7 fL (7.4-10.4); Platelet Count 207 10x3/uL (130-400); Red Blood Cell (RBC) Count 4.19 mill/uL (4.20-5.40); White Blood Cell (WBC) Count 5.4 10x3/uL (4.8-10.8)
[2023-08-26 05:12] LABS: Anion Gap 7 mmol/L (10-20); BUN (Urea Nitrogen) 13 mg/dL (9.8-20.1); Calc. Creatinine Clearance 58 mL/min (70-130); Calcium 9.5 mg/dL (7.8-10.44); Carbon Dioxide 28 mmol/L (23-31); Cardiac Risk 5.2 (Less than 4.5); Chloride 106 mmol/L (98-107); Cholesterol 224 mg/dl (< 200 Desired); Estimated GFR 61; Glucose 101 mg/dL (83-110); HDL Cholesterol 43 mg/dL (>60 Neg Risk); LDL Cholesterol, Calculated 162 mg/dL; Potassium 4.1 mmol/L (3.5-5.1); Sodium 137 mmol/L (136-145); Triglycerides 97 mg/dL (Less than 150)
[2023-08-26] MEDS: Aspirin 81 mg Enteric Coated Tablet PO SCH (09:43)
[2023-08-26] MEDS: Lisinopril 5 MG TAB PO SCH (09:43)
[2023-08-26] MEDS: Enoxaparin 40 MG (0.4 mL) SYRINGE SC SCH (09:44)
[2023-08-26] MEDS: Nebivolol HCl 5 MG TAB PO SCH ×2 (09:44→22:35)
[2023-08-27 14:27] VITALS: BP 122/70; TEMP 98.3
[2023-08-27] MEDS ORDERED: Nebivolol HCl 5 MG TAB PO SCH (21:00)
== END 2023-08-27 15:57 | disposition home or self-care (01) ==
LOC: ERS 08:08 → ERHOLD 11:28 → 2SE 11:41
PROVIDERS: ADMIT Internal Medicine; ATTEND Family Medicine
DX: R42 Dizziness and giddiness (principal); I10 Essential (primary) hypertension; E78.5 Hyperlipidemia, unspecified; Z88.7 Allergy status to serum and vaccine; Z88.5 Allergy status to narcotic agent; Z88.8 Allergy status to other drugs, medicaments and biological substances; Z79.899 Other long term (current) drug therapy; I49.5 Sick sinus syndrome; Z95.0 Presence of cardiac pacemaker; Z98.51 Tubal ligation status; Z98.890 Other specified postprocedural states; Z79.82 Long term (current) use of aspirin
CPT/HCPCS: 70450 ×2; 71045; 80048; 80053; 80061; 81001; 84484; 85025 ×2; 93005; 93306; 93880; 96372 ×2; 96374; 96376 ×2; 99285; G0378 ×4; 36415; J1650; S0028